=== PATIENT | female | born 1990 | race Caucasian/White ===

== ENCOUNTER 2018-10-03 13:09 | Inpatient (IN) | payer MEDICAID ==
[~2018-10-03] VITALS: Ht 157.5 cm; Wt 99.5 kg
[2018-10-03 15:55] VITALS: BP 119/75; PULSE 67; RESP 22
[2018-10-03] MEDS ORDERED: PREN-32 PO (15:55)
[2018-10-03] MEDS ORDERED: IBUPROFEN 600 MG TAB PO PRN (16:30)
[2018-10-03] MEDS ORDERED: OXYTOCIN 30 UNITS/LR 500 ML IV SCH ×3 (16:30→19:30)
[2018-10-03] MEDS ORDERED: BUTORPHANOL 1 MG INJ IV PRN (16:30)
[2018-10-03] MEDS ORDERED: MISOPROSTOL 200 MCG TAB PR PRN (16:30)
[2018-10-03] MEDS ORDERED: METHYLERGONOVINE 0.2 MG INJ IM PRN (16:30)
[2018-10-03] MEDS ORDERED: OXYTOCIN 30 UNITS/LR 500 ML IV PRN (16:30)
[2018-10-03] MEDS ORDERED: BUTORPHANOL 2 MG INJ IV PRN (16:30)
[2018-10-03] MEDS ORDERED: CARBOPROST 250 MCG INJ IM PRN (16:30)
[2018-10-03] MEDS ORDERED: LIDOCAINE 1% (MPF) 30 ML INJ INJ PRN (16:30)
--- NOTE | 2018-10-03 17:41 | TRIAGE ---
OB Triage Datetime Report Generated by CPN: 10/03/2018 17:41 Datetime: 10/03/2018 16:07 Labor Evaluation Frequency: 3-6 Monitor Mode: External Quality: Mild Pattern: Normal: <= 5 Contractions in 10 Minutes Resting Tone [place]: Relaxed Heart Rate FHR Baseline Rate: 125 Monitor Mode: External US Variability: Moderate 6-25 bpm Accelerations: 15X15 Decelerations: None Category: Category I Datetime: 10/03/2018 15:57 Vaginal Exam Dilatation (cms): 3.0 Effacement (%): 90 Station: -1 Exam By: Gwen chait Datetime: 10/03/2018 15:49 Stage of : OB Triage Assessment Type: Triage Maternal Assessment Level of Consciousness: Fully Conscious DTR's/Clonus: DTRs 2+; No Clonus Headache: Denies Blurred Vision: No Respiratory Effort: Unlabored; Regular Rhythm; Equal Expansion Breath Sounds, Left: Clear and Equal Breath Sounds, Right: Clear and Equal Nausea/Vomiting: Denies RUQ Epigastric Pain: Denies Lower Extremities Edema: None Degree: None Upper Extremities Edema: None Degree: None Facial Edema: None Temperature Route: Axillary Fall Risk Assessment History of Falling: (0) No Secondary Diagnosis: (0) No Ambulatory Aid: (0) Bedrest/Nurse Assist IV Therapy: (0) No Gait: (0) Normal/Bedrest/Immobile Mental Status: (0) Oriented to Own Ability Fall Score: 0 Fall Risk Score Definition: No Risk: No action required Datetime: 08/12/2018 16:00 Stage of : OB Triage Datetime: 08/12/2018 13:52 Fall Score: 0 Fall Risk Score Definition: No Risk: No action required Datetime: 08/12/2018 13:51 Time of Arrival: 10/03/2018 13:00 EGA: 39.3 Arrived By: Ambulatory Arrived From: Home Chief Complaint: UC's and bleeding since early AM Movement: Present Contractions: Irregular Time Contractions Began: 10/03/2018 05:00 Rupture of Membranes: Denies Vaginal Bleeding: Scant Vaginal Discharge: Denies Abdominal Trauma: Not Applicable Patient Complaints: Contractions Time Provider Notified: 10/03/2018 16:15 Provider Notified: Dr Miller
--- NOTE | 2018-10-03 19:16 | HP ---
Date/Time of Note Date/Time of Note DATE: 10/03/18 TIME: 19:14 OB - History Hx of Present Chief Complaint: contractions Estimated Due Date: Oct 07, 2018 : 1 Para: 0 Spontaneous : 0 Therapeutic : 0 Care: Good Care Ultrasounds: Normal mid trimester US Obstetrical Complications: None Medical Complications: None Past Family/Social History * Past Medical, Surgical, Family and Obstetric Histories reviewed from chart. GBS Status: Negative OB Admission Exam Vital Signs Vital Signs Vital Signs Date Temp Pulse Resp B/P (MAP) Pulse Ox O2 O2 Flow FiO2 Time Delivery Rate 10/03/18 98.1 67 22 119/75 Room Air 15:55 (90) Physical Exam HEENT: WNL Heart: Rhythm Normal Lungs: Clear, Equal Abdomen: WNL Extremities: Normal Reflexes: Normal Cervical Dilatation: 3cm Effacement: 100% Station: -1 Membranes: Intact Heart Rate: 120's Accelerations: Accelerations Present Decelerations: No Decelerations Varibility: Moderate Last 72 hours Lab Results CBC & BMP 10/03/18 16:55 Liver Function Test 10/03/18 16:55 Alanine Aminotransferase (ALT/SGPT) 72 H Albumin 3.5 Alkaline Phosphatase 267 H Aspartate Amino Transf (AST/SGOT) 41 Direct Bilirubin 0.00 Total Protein 6.8 OB Assessment/Plan Reason for admission: other Other Assessment: Early labor Plan: Other Other plan: Augment labor with oxytocin BUDDY WOLF MD Oct 03, 2018 19:16
--- NOTE | 2018-10-03 19:58 | PREAC ---
Date/Time of Note Date/Time of Note DATE: 10/03/18 TIME: 19:57 Anesthesia Eval and Record Evaluation Time Pre-Procedure Interview DATE: 10/03/18 TIME: 19:57 Age 28 Sex female NPO: 8 hrs Preoperative diagnosis in labor Planned procedure Labor epidural Past Medical History Past Medical History: Includes GI: Morbid obesity Surgery & Anesthesia Issues No known issue Meds Anticoagulation: No Beta Bernard within 24 hr: No Reason Beta Bernard not given: Pt. not on B-Bernard Reported Medications #103/Iron Fumarate/FA ( Tablet) 1 Each Tablet, 1 EACH PO, TAB 10/03/18 Current Medications Lactated Ringer's 1,000 ml @ 125 mls/hr Q8H IV ; Start 10/03/18 at 16:16 Butorphanol Tartrate (Stadol) 1 mg Q2H PRN IV .PAIN; Start 10/03/18 at 16:30 Butorphanol Tartrate (Stadol) 2 mg Q2H PRN IV .PAIN; Start 10/03/18 at 16:30 Lidocaine (Xylocaine 1% (Mpf)) 30 ml ONCE PRN INJ .EPISIOTOMY; Start 10/03/18 at 16:30 Oxytocin/Lactated Ringer's 500 ml @ 500 mls/hr ONCE POST IV ; Start 10/03/18 at 16:30 Oxytocin/Lactated Ringer's 500 ml @ 125 mls/hr POST IV ; Start 10/03/18 at 16:30 Ibuprofen (Motrin) 600 mg ONCE PRN PO .PAIN 1-5; Start 10/03/18 at 16:30 Oxytocin/Lactated Ringer's 500 ml @ 0 mls/hr ONCE PRN IV .VAGINAL BLEEDING; Start 10/03/18 at 16:30 Methylergonovine Maleate (Methergine) 0.2 mg ONCE PRN IM .VAGINAL BLEEDING; Start 10/03/18 at 16:30 Carboprost Tromethamine (Hemabate) 250 mcg ONCE PRN IM .VAGINAL BLEEDING; Start 10/03/18 at 16:30 Misoprostol (Cytotec) 1,[address] .VAGINAL BLEEDING; Start 10/03/18 at 16:30 Oxytocin/Lactated Ringer's 500 ml @ 0 mls/hr FOR INDUCTION IV ; Start 2/21/19 at 19:30 Meds reviewed: Yes Allergies Coded Allergies: No Known Allergy (Unverified , 08/12/18) Allergies Reviewed: Yes Labs/Studies Labs Reviewed: Reviewed by anesthesiologist Result Diagram: 10/03/18 1655 10/03/18 1655 Laboratory Tests 10/03/18 16:55 Blood Bank Test 10/03/18 16:55 Antibody Screen NEGATIVE Blood Type O POSITIVE Rh Immune Globulin Candidate NO test: Positive Pre-procedure Exam Last vitals Vital Signs Date Temp Pulse Resp B/P (MAP) Pulse Ox O2 O2 Flow FiO2 Time Delivery Rate 10/03/18 98.1 67 22 119/75 Room Air 15:55 (90) Airway: Adequate mouth opening Mallampati: Mallampati II Teeth: Normal Lung: Normal Heart: Normal ASA Physical Status ASA physical status: 3 Emergency: None Planned Anesthetic Neuraxial: Epidural Pre-operative Attestations Prior to commencing anesthesia and surgery, the patient was re-evaluated, there was verification of: *The patient's identity *The results of appropriate recent lab work and preoperative vital signs *The above evaluation not changing prior to induction *Anesthetic plan, risk benefits, alternative and complications discussed with patient/family; questions answered; patient/family understands, accepts and wishes to proceed. GLENN FLOWER MD Oct 03, 2018 19:58
[2018-10-03] MEDS ORDERED: FENTAnyl 2MCG/ML-ROPIV 0.2% 100 ML ONE (20:04)
[2018-10-03] MEDS: LACTATED RINGER'S 1,000 ML IV SCH (20:08)
[2018-10-03 20:12] VITALS: Ht 157.5 cm; Wt 99.5 kg
[2018-10-03] MEDS ORDERED: NALOXONE (0.4 MG/ML) INJ IV PRN (20:30)
[2018-10-03] MEDS ORDERED: DIPHENHYDRAMINE 50 MG INJ IV PRN (20:30)
[2018-10-03] MEDS ORDERED: EPHEDrine SULFATE 50 MG/5 ML SYG IV PRN (20:30)
[2018-10-03] MEDS ORDERED: ONDANSETRON 4 MG INJ IV PRN (20:30)
[2018-10-04] MEDS: LACTATED RINGER'S 1,000 ML IV SCH ×3 (00:02→09:33)
[2018-10-04] MEDS: FENTAnyl 2MCG/ML-ROPIV 0.2% 100 ML BAG EPI SCH ×3 (03:04→11:50)
[2018-10-04] MEDS ORDERED: MINERAL OIL LIGHT 10 ML VIAL TOP ONE (05:00)
[2018-10-04] MEDS ORDERED: DEXTROSE 5%-LR 1,000 ML IV SCH (12:00)
--- NOTE | 2018-10-04 15:37 | LDN ---
Date/Time of Note Date/Time of Note DATE: 10/04/18 TIME: 15:35 Delivery Summary Weeks of Gestation 39 weeks and 4 days Placenta Delivered: Spontaneously Meconium: Thick Episiotomy: No Laceration repair: Second degree perineal laceration repaired with 3-0 Vicryl and 2-0 chromic. Anesthesia type: Epidural Estimated blood loss: 300 Sponge & Needle done & correct: Yes All needle counts correct: Yes Any foreign bodies felt in the: No Delivery Information Sex Infant Sex: female Apgars 1 Minute: 9 5 Minute: 9 Suctioning Nose & mouth suctioned at michelle: No Umbilical Cord Umbilical cord with: 3 Vessels Cord presentations: no nuchal cord Cord Blood was obtained: Yes Mother & Baby Disposition Disposition Mom & Baby to Maternity; Good: Yes BUDDY WOLF MD Oct 04, 2018 15:37
[2018-10-04 18:00] VITALS: BP 140/70; PULSE 75; RESP 16
[2018-10-04] MEDS ORDERED: DIBUCAINE 1% 30 GM OINT TOP PRN (18:30)
[2018-10-04] MEDS ORDERED: OXYTOCIN 30 UNITS/LR 500 ML IV PRN (18:30)
[2018-10-04] MEDS ORDERED: BENZOCAINE 20% 56 ML SPRAY TOP PRN (18:30)
[2018-10-04] MEDS ORDERED: MISOPROSTOL 200 MCG TAB PR PRN (18:30)
[2018-10-04] MEDS ORDERED: ACETAMINOPHEN 325 MG TAB PO PRN (18:30)
[2018-10-04] MEDS ORDERED: CARBOPROST 250 MCG INJ IM PRN (18:30)
[2018-10-04] MEDS ORDERED: HYDROCODONE/APAP (5/325) TAB PO PRN (18:30)
[2018-10-04] MEDS ORDERED: WITCH HAZEL/GLYCERIN PAD PR PRN (18:30)
[2018-10-04 20:35] VITALS: BP 133/77; PULSE 76; RESP 18
[2018-10-04] MEDS: SENNA/DOCUSATE NA (8.6MG/50MG) TAB PO SCH (20:53)
--- NOTE | 2018-10-04 21:15 | PAC ---
Date/Time of Note Date/Time of Note DATE: 10/04/18 TIME: 21:15 Post-Anesthesia Notes Post-Anesthesia Note Last documented vital signs Vital Signs Date Temp Pulse Resp B/P (MAP) Pulse Ox O2 O2 Flow FiO2 Time Delivery Rate 10/04/18 98.6 75 16 140/70 Room Air 18:00 (93) Activity: WNL Respiratory function: WNL Cardiovascular function: WNL Mental status: Baseline Pain reasonably controlled: Yes Hydration appropriate: Yes Nausea/Vomiting absent: Yes GLENN FLOWER MD Oct 04, 2018 21:15
[2018-10-05] MEDS: IBUPROFEN 600 MG TAB PO SCH ×5 (00:14→23:45)
[2018-10-05] MEDS: LACTATED RINGER'S 1,000 ML IV* SCH ×2 (00:14→10:14)
[2018-10-05 03:50] VITALS: BP 121/63; PULSE 74; RESP 18
[2018-10-05] MEDS ORDERED: INFLUENZA VIRUS VACCINE 0.5 ML (DISPENSING) IM* ONE (09:00)
[2018-10-05 09:15] VITALS: BP 123/70; PULSE 65; RESP 18
[2018-10-05] MEDS: SENNA/DOCUSATE NA (8.6MG/50MG) TAB PO SCH ×2 (10:00→21:05)
[2018-10-05 12:04] VITALS: BP 118/66; PULSE 71; RESP 18
--- NOTE | 2018-10-05 14:29 | QN ---
Documentation Comment No complaint Afebrile VSS Fundus firm Lochia scant PPD #1 stable Continue present care. BUDDY WOLF MD Oct 05, 2018 14:29
[2018-10-05 16:00] VITALS: BP 135/73; PULSE 66; RESP 18
[2018-10-05 19:50] VITALS: BP 132/74; PULSE 73; RESP 16
[2018-10-06 04:15] VITALS: BP 118/64; PULSE 73; RESP 18
[2018-10-06] MEDS: IBUPROFEN 600 MG TAB PO SCH ×2 (05:50→12:39)
[2018-10-06 07:30] VITALS: BP 134/63; PULSE 73; RESP 18
[2018-10-06] MEDS ORDERED: DIPHTH/TET/ACEL PERTUSS (ADULT) 0.5 ML VIAL IM* ONE (09:00)
[2018-10-06] MEDS: SENNA/DOCUSATE NA (8.6MG/50MG) TAB PO SCH (09:08)
--- NOTE | 2018-10-06 13:06 | DS ---
Date/Time of Note Date/Time of Note DATE: 10/06/18 TIME: 13:05 Obstetrical Discharge Record Final Diagnosis Final Diagnosis: Term delivered Vaginal Delivery Obstetrical Delivery: Spontaneous Complications Augmentation: Yes Induction: Yes Rupture of Membranes: No Condition on Discharge Physical Assessment Voiding: Yes Bowel Movement: Yes Breast: Soft, non-tender, Filling Fundus: Firm Abdomen and Incision: soft, not tender Calf Tenderness: No Patient Condition: Good DOUGLAS JACKSON MD Oct 06, 2018 13:06
== END 2018-10-06 16:20 | disposition home or self-care (01) | DRG 807 ==
LOC: OBT 13:09 → L-D 13:10 → OBT 16:15 → L-D 16:15 → MS1 10-04 17:49 → PP1 10-05 21:59
PROVIDERS: ADMIT Obstetrics & Gynecology; ATTEND Obstetrics & Gynecology
PROC: 10E0XZZ Delivery of Products of Conception, External Approach (ICD-10-PCS; principal; 2018-10-04)
PROC: 0KQM0ZZ Repair Perineum Muscle, Open Approach (ICD-10-PCS; 2018-10-04)
DX: O70.1 Second degree perineal laceration during delivery (principal); Z37.0 Single live birth; Z3A.39 39 weeks gestation of pregnancy
CPT/HCPCS: 62319; 76815; 80053; 81001; 84560; 85025; 85384; 85610; 85730; 86592; 86850; 86900; 86901; 87340; 90686; 90715; 99464; G0463; J2210; J2590; J3010; J7120; J7121